=== PATIENT | male | born 1965 | race Caucasian/White ===

== ENCOUNTER 2019-04-13 16:17 | Emergency (ER) | payer BC, OTHER ==
[2019-04-13] MEDS ORDERED: Ondansetron 4 MG/2 ML SDV IV ONE (16:57)
[2019-04-13] MEDS ORDERED: Sodium Chloride 0.9% 1,000 ML IV ONE (16:57)
[2019-04-13] MEDS ORDERED: Sodium Chloride 0.9% 10 ML Syringe FLUSH PRN (16:58)
[2019-04-13] MEDS ORDERED: Dexamethasone 4 MG/ML SDV IVPUSH ONE (16:58)
[2019-04-13] MEDS ORDERED: Meclizine 12.5 MG Tab PO ONE (16:58)
--- NOTE | 2019-04-13 17:00 | EDM.PDOC ---
<Kevin Araujo - Last Filed: 04/13/19 18:04> ED HPI GENERAL MEDICAL PROBLEM - General Chief Complaint: Neuro Symptoms/Deficits Stated Complaint: VOMITING DIZZINESS Time Seen by Provider: 04/13/19 16:59 Source of Information: Reports: Patient, Family (), RN, RN Notes Reviewed History Limitations: Reports: No Limitations - History of Present Illness INITIAL COMMENTS - FREE TEXT/NARRATIVE: Pt states that dizziness started this morning, has had episodes like this before but not to this severity. Pt history significant for HTN, vertigo and tinnitus. Dizziness has caused vomiting of several episodes prior to presentation. Pt states he is nauseated as well. Pt states he is dizzy lying down, less so with eyes shut. 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 Pt states left hand, 4th and 5th digits numb, sometimes whole arm is numb, sometimes due to position and with increased neck pain. Pt had a similar episode about 1 week ago. No weakness on one side, no vision changes. Pt has not 'passed out'. states the facial redness is new this morning. No new medications. Pt stated nosebleed with vomiting, able to stop at home. No history of head injury. Onset: Today Duration: Constant Location: Reports: Head, Neck Quality: Reports: Ache Severity: Moderate Improves with: Reports: Other (lying down with eyes closed) Associated Symptoms: Reports: Nausea/Vomiting. Denies: Chest Pain, Cough, Diaphoresis, Fever/Chills, Headaches, Loss of Appetite, Shortness of Breath, Syncope, Weakness - Related Data Allergies Allergy/AdvReac Type Severity Reaction Status Date / Time No Known Allergies Allergy Verified 04/13/19 16:40 Home Meds: Home Meds Sertraline [Zoloft] 100 mg PO DAILY 02/10/18 [History] buPROPion HCl [Wellbutrin Xl] 300 mg PO DAILY 02/10/18 [History] Lisinopril/Hydrochlorothiazide [Lisinopril-Hctz 10-12.5 mg Tab] 10 - 12.5 mg PO DAILY 04/13/19 [History] Past Medical History HEENT History: Reports: None Cardiovascular History: Reports: Hypertension Respiratory History: Reports: None Gastrointestinal History: Reports: None Genitourinary History: Reports: None Musculoskeletal History: Reports: None Neurological History: Reports: Vertigo, Other (See Below) Other Neuro History: dizziness Psychiatric History: Reports: Anxiety, Depression Endocrine/Metabolic History: Reports: None Hematologic History: Reports: None Immunologic History: Reports: None Oncologic (Cancer) History: Reports: None Dermatologic History: Reports: None - Infectious Disease History Infectious Disease History: Reports: None - Past Surgical History HEENT Surgical History: Reports: None Cardiovascular Surgical History: Reports: None Respiratory Surgical History: Reports: None GI Surgical History: Reports: None Neurological Surgical History: Reports: None Musculoskeletal Surgical History: Reports: Arthroscopic Knee Social & Family History - Family History Family Medical History: Noncontributory - Tobacco Use Smoking Status *Q: Never Smoker Second Hand Smoke Exposure: No - Caffeine Use Caffeine Use: Reports: Coffee - Recreational Drug Use Recreational Drug Use: No ED ROS GENERAL - Review of Systems Review Of Systems: See Below Constitutional: Denies: Fever, Chills, Weakness, Fatigue HEENT: Reports: Vertigo. Denies: Ear Pain, Eye Discharge, Eye Pain, Nosebleed, Nose Pain, Rhinitis, Throat Pain, Throat Swelling Respiratory: Denies: Shortness of Breath, Wheezing, Cough, Sputum Cardiovascular: Denies: Chest Pain, Dyspnea on Exertion, Lightheadedness, Palpitations, Syncope Endocrine: Reports: No Symptoms GI/Abdominal: Reports: Nausea, Vomiting. Denies: Abdominal Pain, Constipation, Diarrhea, Decreased Appetite, Difficulty Swallowing, Distension : Reports: No Symptoms Musculoskeletal: Reports: No Symptoms Skin: Reports: No Symptoms Neurological: Reports: Dizziness, Numbness (left arm and digits due to positioning), Tingling. Denies: Headache, Syncope, Weakness, Change in Speech Psychiatric: Reports: No Symptoms Hematologic/Lymphatic: Reports: No Symptoms Immunologic: Reports: No Symptoms ED EXAM, NEURO - Physical Exam Exam: See Below Exam Limited By: No Limitations General Appearance: Alert, WD/WN, No Apparent Distress Eye Exam: Bilateral Eye: Normal Inspection, Nystagmus, PERRL Ears: Normal External Exam, Normal Canal, Hearing Grossly Normal, Normal TMs Nose: Normal Inspection, Normal Mucosa, No Blood Throat/Mouth: Normal Inspection, Normal Lips, Normal Teeth, Normal Gums, Normal Oropharynx, Normal Voice, No Airway Compromise Head Exam: Atraumatic, Normocephalic Neck: Normal Inspection, Supple, Non-Tender, Full Range of Motion Respiratory/Chest: No Respiratory Distress, Lungs Clear, Normal Breath Sounds, No Accessory Muscle Use, Chest Non-Tender Cardiovascular: Normal Peripheral Pulses, Regular Rate, Rhythm, No Edema, No Gallop, No JVD, No Murmur, No Rub GI/Abdominal: Normal Bowel Sounds, Soft, Non-Tender, No Organomegaly, No Distention, No Abnormal Bruit, No Mass (Male) Exam: Deferred Rectal (Males) Exam: Deferred Neurological: Alert, Normal Mood/Affect, Normal Dorsiflexion, CN II-XII Intact, Normal Plantar Flexion, Normal Gait, Normal Reflexes, No Motor/Sensory Deficits , Oriented x 3 Extremities: Normal Inspection, Normal Range of Motion, Non-Tender, No Pedal Edema, Normal Capillary Refill Psychiatric: Normal Affect, Normal Mood Skin Exam: Warm, Dry, Intact, Normal Color, No Rash, Ecchymosis (around eyes bilaterally from retching while vomitting) Course - Vital Signs Last Recorded V/S: Last Vital Signs Temp 98.0 F 04/13/19 16:30 Pulse 77 04/13/19 16:49 Resp 13 04/13/19 16:49 BP 167/90 H 04/13/19 16:49 Pulse Ox 99 04/13/19 16:49 - Orders/Labs/Meds Orders: Active Orders 24 hr Category Date Time Status Peripheral IV Care [RC] . DIRECTED Care 04/13/19 16:58 Active Sodium Chloride 0.9% [Saline Flush] Med 04/13/19 16:58 Active 10 ml FLUSH ASDIRECTED PRN Peripheral IV Insertion Adult [OM.PC] Stat Oth 04/13/19 16:56 Ordered Medication Orders Sodium Chloride (Saline Flush) 10 ml FLUSH ASDIRECTED PRN PRN Reason: Keep Vein Open Last Admin: 04/13/19 17:18 Dose: 10 ml Labs: Laboratory Tests 04/13/19 04/13/19 Range/Units 17:15 17:15 WBC 9.9 (5.0-10.0) 10^3/uL RBC 5.00 (4.6-6.2) 10^6/uL Hgb 15.9 (14.0-18.0) g/dL Hct 44.9 (40.0-54.0) % MCV 89.8 (80-100) fL MCH 31.8 (27.0-34.0) pg MCHC 35.4 H (33.0-35.0) g/dL Plt Count 204 (150-450) 10^3/uL Neut % (Auto) 71.3 (42.2-75.2) % Lymph % (Auto) 21.0 (20.5-50.1) % Wells % (Auto) 6.5 (2-8) % Eos % (Auto) 0.8 L (1.0-3.0) % Baso % (Auto) 0.4 (0.0-1.0) % Sodium 138 (135-145) mmol/L Potassium 3.7 (3.6-5.0) mmol/L Chloride 103 (101-111) mmol/L Carbon Dioxide 26.0 (21.0-31.0) mmol/L Anion Gap 12.7 BUN 16 (7-18) mg/dL Creatinine 1.1 (0.6-1.3) mg/dL Est Cr Clr Drug Dosing 77.66 mL/min Estimated GFR (MDRD) > 60 BUN/Creatinine Ratio 14.54 Glucose 103 (74-105) mg/dL Calcium 9.4 (8.4-10.2) mg/dl Magnesium 2.0 (1.8-2.5) mg/dL Total Bilirubin 0.6 (0.2-1.0) mg/dL AST 22 (10-42) IU/L ALT 30 (10-60) IU/L Alkaline Phosphatase 56 (42-121) IU/L Total Protein 7.8 (6.7-8.2) g/dl Albumin 4.5 (3.2-5.5) g/dl Globulin 3.3 Albumin/Globulin Ratio 1.36 Meds: Medications Generic Name Dose Route Start Last Admin Trade Name Freq PRN Reason Stop Dose Admin Sodium Chloride 10 ml 04/13/19 16:58 04/13/19 17:18 Saline Flush FLUSH 10 ml ASDIRECTED PRN Administration Keep Vein Open Discontinued Medications Generic Name Dose Route Start Last Admin Trade Name Freq PRN Reason Stop Dose Admin Dexamethasone 20 mg 04/13/19 16:58 04/13/19 17:19 Dexamethasone IVPUSH 04/13/19 16:59 20 mg ONETIME ONE Administration Diazepam 5 mg 04/13/19 16:58 04/13/19 17:25 Valium IVPUSH 04/13/19 16:59 5 mg ONETIME ONE Administration Sodium Chloride 1,000 mls @ 999 mls/hr 04/13/19 16:57 04/13/19 17:17 Normal Saline IV 04/13/19 17:57 999 mls/hr .BOLUS ONE Administration Meclizine HCl 25 mg 04/13/19 16:58 04/13/19 17:31 Antivert PO 04/13/19 16:59 25 mg ONETIME ONE Administration Ondansetron HCl 4 mg 04/13/19 16:57 04/13/19 17:25 Zofran IV 04/13/19 16:58 4 mg ONETIME ONE Administration Departure - Departure Time of Disposition: 18:30 Disposition: Home, Self-Care 01 Condition: Good Clinical Impression: Vertigo - Discharge Information *PRESCRIPTION DRUG MONITORING PROGRAM REVIEWED*: Not Applicable *COPY OF PRESCRIPTION DRUG MONITORING REPORT IN PATIENT GGII: Not Applicable Instructions: Vertigo, [id number] Forms: ED Department Discharge Additional Instructions: Rx: Diazepam 5 mg Rx: Decadron 4 mg Rx: Meclizine 25 mg If symptoms return utilize the medications as prescribed. If no relief from symptoms with medication follow-up with primary care provider in clinic or return to ED. Sepsis Event Note - Evaluation Sepsis Screening Result: No Definite Risk - Focused Exam Vital Signs: Vital Signs Temp Pulse Resp BP Pulse Ox 04/13/19 16:49 77 13 167/90 H 99 04/13/19 16:30 98.0 F 88 17 193/101 H 99 Date Exam was Performed: 04/13/19 Time Exam was Performed: 18:04 - My Orders Last 24 Hours: My Active Orders 04/13/19 16:56 Peripheral IV Insertion Adult [OM.PC] Stat 04/13/19 16:58 Peripheral IV Care [RC] . DIRECTED Sodium Chloride 0.9% [Saline Flush] 10 ml FLUSH ASDIRECTED PRN - Assessment/Plan Last 24 Hours: My Active Orders 04/13/19 16:56 Peripheral IV Insertion Adult [OM.PC] Stat 04/13/19 16:58 Peripheral IV Care [RC] . DIRECTED Sodium Chloride 0.9% [Saline Flush] 10 ml FLUSH ASDIRECTED PRN <Jj Antunez - Last Filed: 04/13/19 18:09> Social & Family History - Living Situation & Occupation Living situation: Reports: , with Spouse Occupation: Employed Course - Re-Assessments/Exams Free Text/Narrative Re-Assessment/Exam: 04/13/19 I personally performed or re-performed the physical examination and medical decision making. I have verified all student documentation or findings, including history, physical exam and/or medical decision making. Sepsis Event Note - Focused Exam Date Exam was Performed: 04/13/19 Time Exam was Performed: 18:08
[2019-04-13 17:46] LABS: ANION GAP 12.7; CHLORIDE,CL 103 mmol/L (101-111); SODIUM,NA 138 mmol/L (135-145)
== END 2019-04-13 18:23 | disposition home or self-care (01) ==
LOC: DL.ED 16:17
DX: R42 Dizziness and giddiness (principal); I10 Essential (primary) hypertension; F41.9 Anxiety disorder, unspecified; F32.9 Major depressive disorder, single episode, unspecified; Z79.899 Other long term (current) drug therapy
CPT/HCPCS: 36415; 80053; 83735; 85025; 96361; 96374; 96375; 99284; A9270; J1100; J2405; J3360; J7030